=== PATIENT | male | born 1980 | race Caucasian/White ===

== ENCOUNTER 2023-02-24 09:22 | Emergency (ER) | payer OTHER, SELFPAY ==
[2023-02-24] VITALS (17 sets, daily range): BP systolic 94–119; BP diastolic 74–97; PULSE 56–118; RESP 16; TEMP 35.9; O2SAT 95–98; BMI 28.7
--- NOTE | 2023-02-24 09:52 | ED.NURSE ---
0952--started saline lock #20 in the right wrist and able to draw the labs from the site. EKG doen. patient suddenly became diaphoretic, pale, hr dropped to 45,BP 78/50, and stated I do not feel good. Informed Dr. Torres of this issue and to come see the patient. patient felt like the hands are shaking bilaterally but staff does not see visible shaking. c/o feeling dehydrated, weak, and legs are heavy.
--- NOTE | 2023-02-24 10:00 | ED.NURSE ---
Dr. Torres is talking to patient about doing a cardioversion and went over the consent with patient. patient is set up for cardioversion with Dr. Nath and Dr. Torres present in the room with scriber. All equipment is present and ready if needed.
--- NOTE | 2023-02-24 10:19 | ED.NURSE ---
see conscious sedation form and shocked 150 joules with one shock converted into a normal sinus rhythm. repeated EKG done to confirm rhythm. Dr. Torres reviewing the EKG. patietn is doing well and arousable.
--- NOTE | 2023-02-24 10:39 | W.ED.CHARTNO ---
ED Chart Note Chart Note Details Date: 02/24/23 Details: I was asked to supply airway expertise along with anesthesia. Indication was atrial fibrillation with hypotension, please see provider's note. Patient briefly is a 42-year-old gentleman, past history of at least 4 general anesthesia is. No known drug allergies, last ate approximately 3 hours ago. History of previous atrial fibrillation which I believe has been dealt with with electrical cardioversion. No loose teeth, no history of neck issues. Brief examination shows blood pressure 112/97, but he had been down to 70 systolic initially. Pulse was 118 irregularly irregular on the monitor, consistent with atrial fibrillation respiratory rate 16 temperature 96.7? and saturations on 98% on 3 L of oxygen Pupils equal round reactive to light, oropharynx normal, good neck extension, Mallampati score 2, chest is good air entry bilaterally with no wheezing crackles noted heart sounds are normal, with irregularly irregular heart rhythm. Extremities reveal no pitting edema swelling is neurologically intact. Etomidate, 20 mg, was used, this resulted in good anesthesia, Saturations never dipped below 88%, supplemental oxygen was used, chin thrust was used, briefly. Assessment: Successful anesthesia for electrical cardioversion. Plan: Patient will recovered normally, he is now currently speaking normally, maintaining saturations, and back in normal sinus rhythm.
[2023-02-24 10:42] LABS: Basophils Absolute Auto 0.03 K/uL (0.00-0.30); Basophils Percent Auto 0.5 % (0.0-3.0); Eosinophils Absolute Auto 0.12 K/uL (0.00-0.50); Eosinophils Percent Auto 1.9 % (0.0-7.0); Hematocrit 49.2 % (37.0-53.0); Hemoglobin* 16.8 gm/dL (13.5-17.5); Lymphocytes Absolute Auto 2.15 K/uL (0.90-2.90); Lymphocytes Percent Auto 34.2 % (20-44); Mean Corpuscular HGB Conc 34 gm/dL (32-36); Mean Corpuscular Hemoglobin 30 pg (26-34); Mean Corpuscular Volume 86 fL (80-100); Monocytes Percent Auto 8.9 % (0.0-11.0); Neutrophils Absolute Auto 3.42 K/uL (1.7-7.0); Neutrophils Percent Auto 54.5 % (42.0-72.0); Platelet Count* 343 K/uL (140-440); RDW Coefficient of Variation % 13.2 % (11.5-15.5); White Blood Count* 6.28 K/uL (4.50-11.00)
[2023-02-24 10:45] LABS: Slide Review Reflex No
[2023-02-24 10:55] LABS: Chloride* 110 mmol/L (96-114)
[2023-02-24 10:56] LABS: Albumin* 4.7 g/dL (3.3-5.0); Potassium* 4.2 mmol/L (3.6-5.1); Sodium* 140 mmol/L (135-149)
[2023-02-24 10:58] LABS: Creatinine* 0.8 mg/dL (0.5-1.5); Estimated Glomerular Filt Rate 113 ml/min
[2023-02-24 10:59] LABS: Alanine Aminotransferase* 24 U/L (4-50); Alkaline Phosphatase* 97 U/L (40-150); Anion Gap 10 mEq/L (7-15); Aspartate Amino Transferase* 31 U/L (12-35); Bilirubin Total* 0.9 mg/dL (0.1-1.5); Blood Urea Nitrogen* 14 mg/dL (5-24); Carbon Dioxide* 20 mmol/L (20-32); Glucose* 91 mg/dL (60-115)
[2023-02-24 11:00] LABS: Calcium* 9.3 mg/dL (8.4-10.6); Magnesium* 2.4 mg/dL (1.5-2.6)
[2023-02-24] MEDS: ETOMIDATE 2 MG/ML inj 30 MG IVP (11:04)
[2023-02-24] MEDS: 0.9 % SODIUM CHLORIDE 1000 ml 1,000 ML IV (11:04)
[2023-02-24 11:13] LABS: Troponin I* < 0.01 ng/mL (0.01-0.04)
--- NOTE | 2023-02-24 11:21 | ED.NURSE ---
patient is feeling better, back to normal. the feeling in the legs is gone. on the cell phone looking at it.
--- NOTE | 2023-02-24 11:31 | ED.GENADULT ---
HPI - General Adult General Chief complaint: Arrhythmia/Palpitations Stated complaint: Afib since last night Time Seen by Provider: 02/24/23 09:55 Source: patient Mode of arrival: ambulatory Limitations: no limitations History of Present Illness HPI narrative: 42 year male presenting today with concerns about atrial fibrillation. Patient states that he started feeling atrial fibrillation last evening around 7:30 p.m.. He states that this did occur to him 2 years ago and he was able to cardiovert with medications. He is quite concerned because he does feel short of breath and he feels like his legs are very weak. He is quite sweaty and generally does not feel well. He denies any recent illness and was feeling fine until 7:30pm last night when he felt his heart start to race. He is lightheaded. He states that he has a history of very mild hypertension that has not required any medications. He takes no daily medications.. He did have an echocardiogram done last year which was entirely normal. Related Data Home Medications Medication Instructions Recorded Confirmed No Known Home Medications 02/24/23 02/24/23 Allergies Allergy/AdvReac Type Severity Reaction Status Date / Time No Known Drug Allergies Allergy Verified 02/24/23 10:33 Review of Systems Status of ROS: Reports: 10 or more systems reviewed and unremarkable except as noted in History and below [facility] Medical History Atrial fibrillation status post cardioversion ?I48.91 - Unspecified atrial fibrillation (ICD-10) A-fib ?I48.91 - Unspecified atrial fibrillation (ICD-10) Social History Smoking Status: Never smoker Do you use any of these nicotine containing products: None How often do you have a drink containing alcohol: 2-3 times a week AUDIT-C Alcohol total score: 3 Non-prescribed substance use: denies use Exam Narrative: Exam Narrative: Patient is quite hypotensive with systolic blood pressure of 78. Well-nourished well-developed patient pale and diaphoretic. Alert and oriented. Answers questions appropriately. Thoughts are goal oriented and rational. No tangential or magical thinking noted. Patient speaks in full sentences without needing to catch their breath. HEENT: Normocephalic atraumatic. Pupils are equally round reactive to light. Extraocular muscles are intact. Conjunctivae are moist without any icterus noted. Moist mucous membranes. Posterior pharynx is normal. Neck is soft without any lymphadenopathy or thyromegaly. No masses are appreciated. Cardiovascular: Irregularly irregular. S1-S2 present without murmurs. Lungs: Clear to auscultation bilaterally no wheezes rhonchi or rales are appreciated. Patient takes deep breaths without any discomfort. Abdomen: Soft and nontender nondistended with normal bowel sounds. No guarding or rebound. No masses or organomegaly appreciated. Extremities: Bilateral lower extremities are without edema. Normal DP and PT pulses. Skin: Well perfused without any obvious rashes. Const: Vital Signs, click to edit/add: Vital Signs - 24 hr 02/24/23 09:31 02/24/23 09:31 02/24/23 09:59 Temperature 96.7 F L Pulse Rate Pulse Rate [Pulse Oximeter] 118 H Respiratory Rate 16 Blood Pressure Blood Pressure [Le ft Upper Arm] 112/97 H Pulse Oximetry 98 98 98 Oxygen Delivery Me thod Nasal Cannula Room Air 02/24/23 11:02 02/24/23 11:03 02/24/23 11:07 Temperature Pulse Rate 60 59 L 61 Pulse Rate [Pulse Oximeter] Respiratory Rate Blood Pressure 114/79 116/82 Blood Pressure [Le ft Upper Arm] Pulse Oximetry 95 96 96 Oxygen Delivery Me thod Room Air 02/24/23 11:12 Temperature Pulse Rate 57 L Pulse Rate [Pulse Oximeter] Respiratory Rate Blood Pressure 103/81 Blood Pressure [Le ft Upper Arm] Pulse Oximetry 95 Oxygen Delivery Me thod Course Course ED Course: Upon arrival, patient is placed in Trendelenburg and a IV is started. Blood pressure does come up into the 90s than low 100s with fluid bolus. We discussed cardioversion upon arrival, which I think is necessary at this time he is quite symptomatic and not tolerating atrial fibrillation- patient is in agreement with this after risk and benefits are discussed. Initial EKG does show atrial fibrillation with a pulse in the 80s to 100s. Dr. Galindo provided anesthesia and airway management. Please see his note for further details. We proceeded with a synchronized cardioversion with 150 joules x1. This was successful and patient went into normal sinus rhythm. Repeat EKG showed sinus bradycardia with a pulse of 50. After cardioversion, patient felt significantly better. Color return to his face, diaphoresis stopped and he was long longer lightheaded. He recover from anesthesia without difficulty. Blood work was unremarkable. I did consult with Dr. Figueroa, who was able to see the patient's medical records as he had cardiac workup done through [facility]. He did not recommend be sent home on any medications, did recommend cardiology follow-up. Vital Signs Vital signs: Initial Vital Signs Respiratory Effort Normal, Spontaneous 02/24/23 09:31 Respiratory Depth Normal 02/24/23 09:31 Respiratory Pattern Normal 02/24/23 09:31 Pulse Oximetry 98 02/24/23 09:31 Oxygen Delivery Method Nasal Cannula 02/24/23 09:31 Vital Signs Pulse Oximetry 98 02/24/23 09:31 Oxygen Delivery Method Nasal Cannula 02/24/23 09:31 Temperature 96.7 F L 02/24/23 09:59 Pulse Rate 57 L 02/24/23 11:12 Respiratory Rate 16 02/24/23 09:59 Blood Pressure 103/81 02/24/23 11:12 Pulse Oximetry 95 02/24/23 11:12 Oxygen Delivery Method Room Air 02/24/23 11:02 Medical Decision Making MDM Narrative Medical decision making narrative: 42-year-old male with atrial fibrillation that was quite symptomatic. Status post cardioversion with symptoms resolved. Recommend follow-up with Cardiology and return to ER if symptoms return. Medical Records Medical records reviewed: Yes I reviewed the patient's medical records Lab Data Lab results reviewed: Yes I reviewed the patient's lab results Labs: Lab Results 02/24/23 Range/Units 09:52 WBC 6.28 (4.50-11.00) K/uL RBC 5.70 (4.30-5.90) m/uL Hgb 16.8 (13.5-17.5) gm/dL Hct 49.2 (37.0-53.0) % MCV 86 (80-100) fL MCH 30 (26-34) pg MCHC 34 (32-36) gm/dL RDW Coeff of Ana 13.2 (11.5-15.5) % Plt Count 343 (140-440) K/uL Neut % (Auto) 54.5 (42.0-72.0) % Lymph % (Auto) 34.2 (20-44) % Woodson % (Auto) 8.9 (0.0-11.0) % Eos % (Auto) 1.9 (0.0-7.0) % Baso % (Auto) 0.5 (0.0-3.0) % Neut # (Auto) 3.42 (1.7-7.0) K/uL Lymph # (Auto) 2.15 (0.90-2.90) K/uL Woodson # (Auto) 0.60 (0.00-0.90) K/UL Eos # (Auto) 0.12 (0.00-0.50) K/uL Baso # (Auto) 0.03 (0.00-0.30) K/uL Abs Immat Gran (auto) 0.00 (0.00-0.30) K/uL Imm/Tot Granulo (auto) 0.0 % Sodium 140 (135-149) mmol/L Potassium 4.2 (3.6-5.1) mmol/L Chloride 110 (96-114) mmol/L Carbon Dioxide 20 (20-32) mmol/L Anion Gap 10 (7-15) mEq/L BUN 14 (5-24) mg/dL Creatinine 0.8 (0.5-1.5) mg/dL Estimated Creat Clear 124.20 Estimated GFR 113 ml/min Glucose 91 (60-115) mg/dL Calcium 9.3 (8.4-10.6) mg/dL Magnesium 2.4 (1.5-2.6) mg/dL Total Bilirubin 0.9 (0.1-1.5) mg/dL Direct Bilirubin 0.0 (0.0-0.5) mg/dL AST 31 (12-35) U/L ALT 24 (4-50) U/L Alkaline Phosphatase 97 (40-150) U/L Troponin I < 0.01 L (0.01-0.04) ng/mL Total Protein 8.0 (6.0-8.3) g/dL Albumin 4.7 (3.3-5.0) g/dL ECG Data Attestation: I personally reviewed and interpreted this ECG as follows: Critical Care Time Critical Care Time Total Critical Care Time in Minutes: 60 Discharge Plan Discharge Clinical Impression: Atrial fibrillation Patient Disposition: Home, Self-Care Condition: Stable Additional Instructions: You will need a follow-up with Cardiology. Call your cardiology team to set this up as soon as possible. Return to the ER if your symptoms return. Prescriptions: No Action No Known Home Medications Follow Up/Referrals: Provider,Not a Local [Primary Care Provider] - Stand Alone Forms: [facility] Info Instructions
== END 2023-02-24 12:21 | disposition home or self-care (01) ==
PROVIDERS: Emergency Provider Family Medicine
DX: I48.91 Unspecified atrial fibrillation (principal)
CPT/HCPCS: 36415; 80048; 80076; 83735; 84484; 85025; 92960; 93005; 94761; 99285; 99291; J7030

== ENCOUNTER 2023-04-10 14:42 | Outpatient (CLI) | payer OTHER, SELFPAY | END 2023-04-10 14:43 | disposition home or self-care (01) | LOC: NFLDREF 14:43 | PROVIDERS: Visit Provider Internal Medicine Cardiovascular Disease | DX: I48.91 Unspecified atrial fibrillation (principal) | CPT/HCPCS: 84443 ==

== ENCOUNTER 2023-04-14 14:15 | Outpatient (CLI) | payer OTHER, SELFPAY ==
[2023-04-14 15:38] VITALS: BP 140/82; PULSE 88; RESP 16
--- NOTE | 2023-04-14 16:26 | W.PM.STED ---
Stress Test Note Date Date of test: 04/14/23 Providers Primary care provider: Von Nolasco Stress test physician: Saroj Nath Stress Test Note Stress test ordered: Stress Echo Indication for test: History of atrial fibrillation Results discussion: This pleasant 42-year-old gentleman presents for the above scheduled and ordered test. Cardiac stress test medical history form is reviewed entirely. After discussion the risks benefits and side effects he would like to proceed. Pretest EKG shows normal sinus rhythm, with a ventricular rate of 77, no acute ST wave changes are notable. Exercises following Chucho protocol over 11 minute. Achieved a metabolic equivalent of 12.1 Mets with a maximum heart rate of 162. This is 107% of the target. Test is terminated because of fulfillment of protocol, he had no anginal equivalent symptoms. There is no ST wave changes suggestive ischemia on the tracing and there is no dysrhythmias. He recovered normally. Impression: Negative electrographic portion of stress echo Follow up suggested: Await echo images these will be read by Cardiology, clinical correlation will be needed. Patient left this testing facility in excellent condition.
== END 2023-04-14 15:46 | disposition home or self-care (01) ==
LOC: STRESS 14:16
PROVIDERS: PCP Family Medicine; Visit Provider Family Medicine
DX: I48.91 Unspecified atrial fibrillation (principal)
CPT/HCPCS: 93016; 93325; 93351

== ENCOUNTER 2023-05-25 17:26 | Emergency (ER) | payer OTHER, SELFPAY ==
[2023-05-25] VITALS (63 sets, daily range): BP systolic 94–137; BP diastolic 43–127; PULSE 75–160; RESP 10–21; TEMP 36; O2SAT 92–99; BMI 27.8
--- NOTE | 2023-05-25 17:44 | ED_ITS ---
HPI - General Adult General Chief complaint: Arrhythmia/Palpitations Stated complaint: weak Time Seen by Provider: 05/25/23 17:44 History of Present Illness HPI narrative: happened twice before. driving home, heart went into afib according to watch. sweaty, feeling wobbly. saw dr. linder. last time had cardioversion. has not taken paroxetine for a few days. 42-year-old man presenting to the emergency department with concern of weakness. Does have a history with atrial fibrillation. Notes a history of cardioversion. On review of records it looks like last cardioversion was 02/24/23. On review of records I see that he did have an stress echocardiogram back in April 2023 and looks to have been quite good. EF of 60-65%. Good global function and no abnormal wall motion. History of atrial fibrillation twice before. He says though that this is typically occurred with periods of stress. Does endorse more emotional stress lately but physical stress was not the trigger this time. He had just been driving back from a ?car appointment?. Is feeling weak and short of breath. Some lightheadedness. This did resolve in recalling with his zoology teacher said decided to come in sooner than later anticipating chemical cardioversion. Has not taken paroxetine last couple or 3 days. Did take that along with a few doses of hydroxyzine which she also has available for his anxiety. Has not been experiencing chest pain. Otherwise physically generally well without cough or cold symptoms. No fever. Exercise tolerance. Foot I understand to be related to emotional stress, has not been taking care of himself quite as well as he would like to the last few days. Has had a few more drinks of caffeine. Denies any other substance/alcohol use. Related Data Home Medications Medication Instructions Recorded Confirmed hydroxyzine HCl 25 mg tablet 30 mg PO QHS 04/10/23 05/25/23 pantoprazole 20 mg tablet,delayed 30 mg PO QDAY 04/10/23 04/10/23 release (Protonix) paroxetine HCl 05/25/23 Allergies Allergy/AdvReac Type Severity Reaction Status Date / Time tramadol AdvReac Severe itching Uncoded 04/10/23 13:53 Review of Systems Status of ROS: Reports: 6 or more systems reviewed and unremarkable except as noted in History and below [facility] Medical History Atrial fibrillation status post cardioversion ?I48.91 - Unspecified atrial fibrillation (ICD-10) A-fib ?I48.91 - Unspecified atrial fibrillation (ICD-10) Social History Smoking Status: Never smoker Do you use any of these nicotine containing products: None How often do you have a drink containing alcohol: 2-3 times a week AUDIT-C Alcohol total score: 3 Non-prescribed substance use: denies use Exam Narrative: Exam Narrative: Pleasant. Seems a little flushed. Easily conversant. Head is atraumatic. Is breathing easily. Mouth sounds sticky. Heart is in a tachycardic rhythm with occasional ectopy. Otherwise distant. Abdomen is soft. Lungs are clear. Extremities are without edema. Well-perfused. Moving all extremities without difficulty. Does seem just a little bit tremulous though. Const: Vital Signs, click to edit/add: Vital Signs - 24 hr 05/25/23 17:30 05/25/23 17:48 05/25/23 18:00 Temperature 96.8 F L Pulse Rate 92 88 Pulse Rate [Pulse Oximeter] 160 H Respiratory Rate 20 Blood Pressure Blood Pressure [Ri ght Upper Arm] 109/88 Pulse Oximetry 98 92 95 Oxygen Delivery Me thod Room Air Oxygen Flow Rate 05/25/23 18:01 05/25/23 18:07 05/25/23 18:08 Temperature Pulse Rate 86 87 94 Pulse Rate [Pulse Oximeter] Respiratory Rate Blood Pressure 118/94 H 113/98 H Blood Pressure [Ri ght Upper Arm] Pulse Oximetry 94 97 94 Oxygen Delivery Me thod Oxygen Flow Rate 05/25/23 18:13 05/25/23 18:15 05/25/23 18:16 Temperature Pulse Rate 104 H 99 89 Pulse Rate [Pulse Oximeter] Respiratory Rate Blood Pressure 118/81 121/85 Blood Pressure [Ri ght Upper Arm] Pulse Oximetry 94 93 95 Oxygen Delivery Me thod Oxygen Flow Rate 05/25/23 18:17 05/25/23 18:21 05/25/23 18:22 Temperature Pulse Rate 86 87 88 Pulse Rate [Pulse Oximeter] Respiratory Rate Blood Pressure 121/82 110/82 Blood Pressure [Ri ght Upper Arm] Pulse Oximetry 95 96 94 Oxygen Delivery Me thod Oxygen Flow Rate 05/25/23 18:30 05/25/23 18:31 05/25/23 18:41 Temperature Pulse Rate 78 84 80 Pulse Rate [Pulse Oximeter] Respiratory Rate Blood Pressure 115/89 115/81 Blood Pressure [Ri ght Upper Arm] Pulse Oximetry 95 96 96 Oxygen Delivery Me thod Oxygen Flow Rate 05/25/23 18:45 05/25/23 18:51 05/25/23 18:52 Temperature Pulse Rate 80 85 94 Pulse Rate [Pulse Oximeter] Respiratory Rate Blood Pressure 122/95 H Blood Pressure [Ri ght Upper Arm] Pulse Oximetry 95 95 96 Oxygen Delivery Me thod Oxygen Flow Rate 05/25/23 19:00 05/25/23 19:01 05/25/23 19:02 Temperature Pulse Rate 91 93 95 Pulse Rate [Pulse Oximeter] Respiratory Rate Blood Pressure 114/89 Blood Pressure [Ri ght Upper Arm] Pulse Oximetry 95 96 96 Oxygen Delivery Me thod Oxygen Flow Rate 05/25/23 19:08 05/25/23 19:15 05/25/23 19:30 Temperature Pulse Rate 92 93 96 Pulse Rate [Pulse Oximeter] Respiratory Rate Blood Pressure 124/88 Blood Pressure [Ri ght Upper Arm] Pulse Oximetry 97 97 98 Oxygen Delivery Me thod Oxygen Flow Rate 05/25/23 19:31 05/25/23 19:32 05/25/23 19:45 Temperature Pulse Rate 99 93 Pulse Rate [Pulse Oximeter] Respiratory Rate Blood Pressure 124/88 Blood Pressure [Ri ght Upper Arm] Pulse Oximetry 98 98 98 Oxygen Delivery Me thod Oxygen Flow Rate 05/25/23 20:00 05/25/23 20:01 05/25/23 20:15 Temperature Pulse Rate Pulse Rate [Pulse Oximeter] Respiratory Rate Blood Pressure Blood Pressure [Ri ght Upper Arm] Pulse Oximetry 97 97 97 Oxygen Delivery Me thod Oxygen Flow Rate 05/25/23 20:23 05/25/23 20:30 05/25/23 20:31 Temperature Pulse Rate Pulse Rate [Pulse Oximeter] Respiratory Rate Blood Pressure Blood Pressure [Ri ght Upper Arm] Pulse Oximetry 97 97 95 Oxygen Delivery Me thod Oxygen Flow Rate 05/25/23 20:45 05/25/23 21:19 05/25/23 21:30 Temperature Pulse Rate 88 Pulse Rate [Pulse Oximeter] Respiratory Rate Blood Pressure Blood Pressure [Ri ght Upper Arm] Pulse Oximetry 96 97 94 Oxygen Delivery Me thod Oxygen Flow Rate 05/25/23 21:31 05/25/23 21:32 05/25/23 21:45 Temperature Pulse Rate 89 88 98 Pulse Rate [Pulse Oximeter] Respiratory Rate Blood Pressure 135/99 H Blood Pressure [Ri ght Upper Arm] Pulse Oximetry 96 96 95 Oxygen Delivery Me thod Oxygen Flow Rate 05/25/23 22:00 05/25/23 22:01 05/25/23 22:02 Temperature Pulse Rate 104 H 77 100 Pulse Rate [Pulse Oximeter] Respiratory Rate Blood Pressure 134/78 Blood Pressure [Ri ght Upper Arm] Pulse Oximetry 94 96 95 Oxygen Delivery Me thod Oxygen Flow Rate 05/25/23 22:15 05/25/23 22:30 05/25/23 22:31 Temperature Pulse Rate 85 111 H 105 H Pulse Rate [Pulse Oximeter] Respiratory Rate Blood Pressure 132/81 Blood Pressure [Ri ght Upper Arm] Pulse Oximetry 96 95 96 Oxygen Delivery Me thod Oxygen Flow Rate 05/25/23 22:32 05/25/23 22:45 05/25/23 23:00 Temperature Pulse Rate 92 87 90 Pulse Rate [Pulse Oximeter] Respiratory Rate Blood Pressure Blood Pressure [Ri ght Upper Arm] Pulse Oximetry 95 96 96 Oxygen Delivery Me thod Oxygen Flow Rate 05/25/23 23:01 05/25/23 23:12 Temperature Pulse Rate 75 Pulse Rate [Pulse Oximeter] Respiratory Rate Blood Pressure 120/88 Blood Pressure [Ri ght Upper Arm] Pulse Oximetry 94 98 Oxygen Delivery Me thod Nasal Cannula Oxygen Flow Rate 4 Documenting provider has reviewed patient's vital signs: yes Course Vital Signs Vital signs: Initial Vital Signs Temperature 96.8 F L 05/25/23 17:30 Temperature Source Temporal Artery Scan 05/25/23 17:30 Pulse Rate 160 H 05/25/23 17:30 Respiratory Rate 20 05/25/23 17:30 Blood Pressure 109/88 05/25/23 17:30 Blood Pressure Mean 95 05/25/23 17:30 Blood Pressure Position Supine 05/25/23 17:30 Pulse Oximetry 98 05/25/23 17:30 Oxygen Delivery Method Room Air 05/25/23 17:30 Vital Signs Temperature 96.8 F L 05/25/23 17:30 Pulse Rate 160 H 05/25/23 17:30 Respiratory Rate 20 05/25/23 17:30 Blood Pressure 109/88 05/25/23 17:30 Pulse Oximetry 98 05/25/23 17:30 Oxygen Delivery Method Room Air 05/25/23 17:30 Temperature 96.8 F L 05/25/23 17:30 Pulse Rate 75 05/25/23 23:01 Respiratory Rate 20 05/25/23 17:30 Blood Pressure 120/88 05/25/23 23:01 Pulse Oximetry 98 05/25/23 23:12 Oxygen Delivery Method Nasal Cannula 05/25/23 23:12 Oxygen Flow Rate 4 05/25/23 23:12 Medications Administered Medications: Discontinued Medications Generic Name Dose Route Start Last Admin Trade Name Freq PRN Reason Stop Dose Admin Diltiazem HCl 20 mg 05/25/23 17:55 05/25/23 18:07 Diltiazem 5 Mg/Ml Inj IVP 05/25/23 17:56 20 mg ONCE ONE Administration Flecainide Acetate 300 mg 05/25/23 20:48 05/25/23 21:21 Flecainide Acetate 50 Mg Tablet PO 05/25/23 20:49 300 mg ONCE ONE Administration Sodium Chloride 1,000 mls @ 1,000 mls/hr 05/25/23 17:55 05/25/23 19:08 0.9 % Sodium Chloride 1000 Ml IV 05/25/23 18:54 Infused .Q1H ONE Infusion Medical Decision Making MDM Narrative Medical decision making narrative: EKG on arrival does show AFib with RVR. This is not the 1st time this has happened. Has just this evening re-entered atrial fibrillation by all account. Would like to cardiovert quickly but without support at this time. Will place IV though and initiate fluid resuscitation. Given 20 mg of diltiazem. Check electrolytes. Heart rate slowed as much as 70 but remained in atrial fibrillation. Back up to near 100 and then 120 +again. Labs are reassuring. Normal potassium and magnesium. Did discuss this case with cardiology since he has seen [facility]. There been a tentative plan to trial ?pill in the pocket reference to flecainide. Checked QTc as acceptable and so less risk of left subsequent arrhythmia. Was given 300 mg of flecainide. During 90 minutes of observation did not result in conversion to normal sinus. Assisted by nursing and anesthesia, prepared for electrical cardioversion. Assisted by Anesthesia was sedated with a propofol and synced to 200 joules. Shocked twice without success. Bolused another L of fluids and adjusted pad placement and shocked again at 200 joules. Did return to normal sinus. Recommendations by Cardiology were not to proceed with antiarrhythmic or rate control with a desire to proceed relatively quickly to cardiac ablation. Alert and supporting own airway. Reassuring vitals. Ambulatory. Lab Data Lab results reviewed: Yes I reviewed the patient's lab results Labs: Lab Results 05/25/23 05/25/23 Range/Units 17:43 17:49 WBC 10.30 (4.50-11.00) K/uL RBC 5.26 (4.30-5.90) m/uL Hgb 15.6 (13.5-17.5) gm/dL Hct 45.6 (37.0-53.0) % MCV 87 (80-100) fL MCH 30 (26-34) pg MCHC 34 (32-36) gm/dL RDW Coeff of Ana 13.1 (11.5-15.5) % Plt Count 343 (140-440) K/uL Neut % (Auto) 55.1 (42.0-72.0) % Lymph % (Auto) 32.9 (20-44) % Nuckolls % (Auto) 8.9 (0.0-11.0) % Eos % (Auto) 2.6 (0.0-7.0) % Baso % (Auto) 0.4 (0.0-3.0) % Neut # (Auto) 5.67 (1.7-7.0) K/uL Lymph # (Auto) 3.39 H (0.90-2.90) K/uL Nuckolls # (Auto) 0.90 (0.00-0.90) K/UL Eos # (Auto) 0.27 (0.00-0.50) K/uL Baso # (Auto) 0.04 (0.00-0.30) K/uL Abs Immat Gran (auto) 0.01 (0.00-0.30) K/uL Imm/Tot Granulo (auto) 0.1 % Sodium 143 (135-149) mmol/L Potassium 4.1 (3.6-5.1) mmol/L Chloride 107 (96-114) mmol/L Carbon Dioxide 25 (20-32) mmol/L Anion Gap 11 (7-15) mEq/L BUN 16 (5-24) mg/dL Creatinine 0.9 (0.5-1.5) mg/dL Estimated Creat Clear 117.36 Estimated GFR 109 ml/min Glucose 93 (60-115) mg/dL Calcium 9.5 (8.4-10.6) mg/dL Magnesium 2.2 (1.5-2.6) mg/dL Troponin I < 0.01 L (0.01-0.04) ng/mL C-Reactive Protein 0.6 (0.5-1.0) mg/dL POC Troponin I 0.00 L (0.01-0.04) ng/ml ECG Data Attestation: I personally reviewed and interpreted this ECG as follows: (EKG 1. Atrial fibrillation with RVR. Rate of 55 EKG 2 after what appeared to be successful cardioversion. Normal sinus rhythm with a rate of 74) Critical Care Time Critical Care Time Critical Care Time: Yes Attestation: The patient required my highest level preparedness to intervene emergently and I personally spent this critical care time directly and personally managing the patient. This critical care time included: Obtaining a history; Examining the patient; Pulse oximetry; Ordering and reviewing of studies; Arranging urgent treatment with development of a management plan; Evaluation of patients response to treatment; Frequent reassessment discussions with other providers. This critical care time was performed to assess and manage the high probability of imminent life-threatening deterioration that could result in multiorgan failure. It was exclusive of separate billable procedures and treating other patients and teaching time. Total Critical Care Time in Minutes: 75 Discharge Plan Discharge Clinical Impression: Atrial fibrillation with RVR Patient Disposition: Home w/ Parent or Adult Condition: Improved Additional Instructions: You were given normal saline IV fluids and 20 mg of diltiazem. We did try oral flecainide with you tonight but that did not convert you as hoped. You were ultimately converted back to normal sinus rhythm with electrical cardioversion at 200 joules. I would anticipate a call from your zoology teacher/cardiology clinic tomorrow to arrange next steps. I believe the plan is to get you in for ablation soon. If you do not hear from them tomorrow I would go ahead and give them a call. Otherwise return for recurrence of symptoms as today, stay well-hydrated. Avoid alcohol and maybe stimulants. I do not have any restrictions on physical activity for you although I realize that prior episodes of AFib seem to have been concurrent with physical exertion. Prescriptions: No Action hydroxyzine HCl 25 mg tablet 30 mg PO QHS pantoprazole [Protonix] 20 mg tablet,delayed release (DR/EC) 30 mg PO QDAY paroxetine HCl Follow Up/Referrals: Von Nolasco MD [Primary Care Provider] - Stand Alone Forms: [employer] Info Instructions Procedures Procedural Sedation Assistants, if any: PRASANNA Douglas Additional Procedures Procedure name: Electrical cardioversion Pre procedure diagnosis: Atrial fibrillation with rapid ventricular response, symptomatic Post procedure diagnosis: Atrial fibrillation with rapid ventricular response, symptomatic Written consent by: patient Site marking: not applicable Verification/time out: correct patient and correct procedure Estimated blood loss (if any): none Conclusion: patient tolerated procedure Additional comments: Following adequate sedation with propofol by Anesthesia support, Synced cardioversion at 200 joules x2 did not result in return to normal sinus rhythm. Pause and reassessment was done. Pads were replaced and location modified. Bolused for another 800 or so mL of normal saline. Sedated again with smaller mg of propofol and cardioverted again with 200 joules successfully with return to normal sinus. Did require brief jaw thrust assist for mild desaturations
[2023-05-25] MEDS: 0.9 % SODIUM CHLORIDE 1000 ml 1,000 ML IV (18:06)
[2023-05-25] MEDS: dilTIAZem 5 MG/ML inj 20 MG IVP (18:07)
[2023-05-25 18:10] LABS: Basophils Absolute Auto 0.04 K/uL (0.00-0.30); Basophils Percent Auto 0.4 % (0.0-3.0); Eosinophils Absolute Auto 0.27 K/uL (0.00-0.50); Eosinophils Percent Auto 2.6 % (0.0-7.0); Hematocrit 45.6 % (37.0-53.0); Hemoglobin* 15.6 gm/dL (13.5-17.5); Immature Granulocytes Abs Auto 0.01 K/uL (0.00-0.30); Immature Granulocytes Pct Auto 0.1 %; Lymphocytes Absolute Auto 3.39 K/uL (0.90-2.90); Lymphocytes Percent Auto 32.9 % (20-44); Mean Corpuscular HGB Conc 34 gm/dL (32-36); Mean Corpuscular Hemoglobin 30 pg (26-34); Mean Corpuscular Volume 87 fL (80-100); Monocytes Percent Auto 8.9 % (0.0-11.0); Neutrophils Absolute Auto 5.67 K/uL (1.7-7.0); Neutrophils Percent Auto 55.1 % (42.0-72.0); Platelet Count* 343 K/uL (140-440); RDW Coefficient of Variation % 13.1 % (11.5-15.5); Red Blood Count 5.26 m/uL (4.30-5.90)
[2023-05-25 18:12] LABS: Slide Review Reflex No
--- OUTSIDE RECORDS SUMMARY | 2023-05-25 18:12 | XMS_ITS | Clinical Summary ---
Author Name Unknown Organization [facility] Address [address] [address] Phone Care Team Providers Care Fatback Trimmer Name Role Phone Elsewhere, Pcp Primary Care Provider Unavailabl e Allergies No known active allergies Medications No known medications Active Problems No known active problems Immunizations Name Administration Dates Next Due Tdap (7 years and older) 10/14/2011 Social History Tobacco Use Types Packs/Day Years Used Date Smoking Tobacco: Never Sex and Gender Information Value Date Recorded Sex Assigned at Not on file Gender Identity Not on file Sexual Orientation Not on file Obstetrics History Last Filed Vital Signs Vital Sign Reading Time Taken Comments Blood Pressure 116/70 10/14/2011 4:41 PM CDT Pulse 60 10/14/2011 4:41 PM CDT Temperature 36.2 ??C (97.2 ??F) 10/14/2011 4:41 PM CD T Respiratory Rate 18 10/14/2011 4:41 PM CDT Oxygen Saturation 98% 10/14/2011 4:41 PM CDT Inhaled Oxygen Concentration - - Weight 77.1 kg (170 lb) 10/14/2011 4:41 PM CDT Height - - Body Mass Index - - Plan of Treatment Health Maintenance Due Date Last Done Comments Hepatitis B Vaccine (Standin g Order) (1 of 3 - 3-dose series) 1980 COVID-19 Vaccine (#1) 1980 TETANUS (Standing Order) 10/13/2021 10/14/2011 Influenza Vaccine Seasonal (Standing Order) (#1) 2023 PERTUSSIS (Standing Order) Completed 10/14/2011 HPV Vaccine (Standing Order) Aged Out No longer eligible based on patient's age to complete this topic Pneumococcal/PCV20 Vaccine: Pediatrics (2-5 yrs) and At-Risk Patients (6-64 yrs) (Standing Order) Aged Out No longer eligible b ased on patient's age to complete this topic Care Teams Fatback Trimmer Relationship Specialty Start Date End Date Elsewhere, Pcp PCP - General 10/14/11
--- OUTSIDE RECORDS SUMMARY | 2023-05-25 18:12 | XMS_ITS | Clinical Summary ---
Author Name Unknown Organization [employer] [facility] [employer] [facility] Address [place], [place] [address] Care Team Providers Care Assembler Unit Name Role Phone Von Nolasco MD Primary Care Provider [phone] Allergies Active Allergy Reactions Criticality Noted Date Comments Tramadol Itching Low 06/11/2016 Medications Medication Sig Dispensed Refills Start Date End Date Status PARoxetine (PAXIL) 30 mg tablet Take 30 mg by mouth once daily. 0 Active Active Problems Problem Noted Date Diagnosed Date Closed fracture of right ankle with routine heal ing 2016 Encounters Date Type Department Care Team Description 04/17/2023 Telephone [facility] [address] [address] [place] [address] Jens Levine MD Results (stress echo) 04/14/2023 3:00 PM HEADLINER INSTALLER Ancillary Procedure [facility] [address] [place] [address] 04/10/2023 2:00 PM HEADLINER INSTALLER Office Visit [facility] [address] [place] [address] Jens Levine MD from Last 3 Months Family History Medical History Relation Name Comments Good Health Father Good Health Mother Relation Name Status Comments Father Alive Mother Alive Social History Tobacco Use Types Packs/Day Years Used Date Smoking Tobacco: Never Smokeless Tobacco: Never Tobacco Cessation:Counseling Given: Yes Alcohol Use Standard Drinks/Week Comments Not Currently 0 (1 standard drink = 0.6 oz pur e alcohol) Social Connections Answer Date Recorded Frequency of Communication with Friends and Fami ly Not on file 05/06/2021 Financial Resource Strain Answer Date R ecorded Difficulty of Paying Living Expenses Not on file 05/06/2021 Difficulty of Paying Living Expenses Not on file 05/06/2021 Sex and Gender Information Value Date Recorded Sex Assigned at Not on file Gender Identity Not on file Sexual Orientation Not on file Obstetrics History Last Filed Vital Signs Vital Sign Reading Time Taken Comments Blood Pressure 160/100 05/06/2021 7:53 AM HEADLINER INSTALLER Pulse 99 05/06/2021 7:53 AM HEADLINER INSTALLER Temperature 36.8 ??C (98.2 ??F) 12/08/2016 7:24 AM CD T Respiratory Rate 16 12/23/2016 4:08 PM CDT Oxygen Saturation 95% 05/06/2021 7:53 AM HEADLINER INSTALLER Inhaled Oxygen Concentration - - Weight 99.2 kg (218 lb 12.8 oz) 05/06/2021 7:53 AM HEADLINER INSTALLER Height 182.9 cm (6') 05/06/2021 7:53 AM HEADLINER INSTALLER Body Mass Index 29.67 05/06/2021 7:53 AM HEADLINER INSTALLER Plan of Treatment Health Maintenance Due Date Last Done Comments COVID-19 vaccine series (#1) 1980 Tdap 1991 Depression screening for age 12+ 1992 HIV for age 15-65 1995 Hepatitis C screening for ag e 18-79 1998 Tetanus booster 2000 Lipids for age 35-44 2015 BMI (ht and wt on same day) for age 18+ 05/06/2022 05/06/2021, 11/19/2016 Influenza for age 9-49 01/02/2023 Pneumococcal series for age 6-64 Aged Out No longer eligible b ased on patient's age to complete this topic Medical Devices Implanted Type Area Escalator Constructor Device Identifier Shelf Expiration Date Model / Serial / Lot [id number] - [id number] Implanted:Qty: 1 on 06/12/2016 by Anatoly Villeda MD at [facility] Right: Ankle [employer] [id number] / / N/A Description:3.5mm Non Lockin g Screws, T10 [id number] - [id number] Implanted:Qty: 1 on 06/12/2016 by Anatoly Villeda MD at [facility] Right: Ankle [employer] [id number] / / N/A Description:3.5mm Non Lockin g Screws, T10 [id number] - [id number] Implanted:Qty: 2 on 06/12/2016 by Anatoly Villeda MD at [facility] Right: Ankle [employer] [id number] / / N/A Description:3.5 Non Locking Screws, T10 [id number] - [id number] Implanted:Qty: 1 on 06/12/2016 by Anatoly Villeda MD at [facility] Right: Ankle [employer] [id number] / / N/A Description:Fibula Straight Plate, Non Sterile [id number] - [id number] Implanted:Qty: 1 on 06/12/2016 by Anatoly Villeda MD at [facility] Right: Ankle [employer] [id number] / / N/A Description:3.5mm Non Lockin g Screws, T10 [id number] - [id number] Implanted:Qty: 1 on 06/12/2016 by Anatoly Villeda MD at [facility] Right: Ankle [employer] [id number] / / N/A Description:3.5mm Non Lockin g Screws, T10 [id number] - [id number] Implanted:Qty: 2 on 06/12/2016 by Anatoly Villeda MD at [facility] Right: Ankle [employer] [id number] / / N/A Description:3.5mm Non Lockin g Screws, T10 Explanted Type Area Escalator Constructor Device Identifier Shelf Expiration Date Model / Serial / Lot [id number] - [id number] Implanted:Qty: 2 on 06/12/2016 by Anatoly Villeda MD at [facility] Explanted:Qty: 2 on 12/08/2016 at [facility] Right: Ankle [employer] [id number] / / N/A Procedures Procedure Name Priority Date/Time Associated Diagnosis Comments ECHO STRESS EXERCISE WO CONTRAST W COLOR Routine 04/14/2023 3:37 PM HEADLINER INSTALLER A-fib (HC) from Last 3 Months Results * ECHO STRESS EXERCISE WO CONTRAST W COLOR (04/14/2023 3:37 PM HEADLINER INSTALLER) LVEDD 4.7 cm EJECTION FRACTION 55 - 60% Anatomical Region Laterality Modality Ultrasound 04/14/2023 3:10 PM HEADLINER INSTALLER Narrative 04/14/2023 4:46 PM HEADLINER INSTALLER STRESS ECHOCARDIOGRAM WENDY FITCH ? Accession#: ?? [id number] : ?1980 42 years Study Date: ?? 04/14/2023 3:10:52 PM Gender: M ?BP: ? 144/100 mmHg Height: 183.00 cm ?BSA: ?2.17 m? ? ? Weight: 95.00 kg ? Tech: ? [facility] ? Referring MD: JENS LEVINE Site: ? [facility] Reading Location: MOBILE OP Patient Location: Outpatient. Procedure: Stress Echo and Color Doppler. Chucho stress echo. Indication for study: atrial fibrillation Cardiac Rhythm: Regular.Study quality: Fair. Final Impressions: 1. Excellent exercise duration and workload. 2. Maximum stress test with 90.9% of age predicted maximum heart rate achieved. 3. During stress exam the patient developed shortness of breath and leg pain/fatigue. 4. See separate report for EKG interpretation. 5. Post stress, normal left ventricular size, normal global systolic function with an estimated EF of 60 to 65%. 6. Negative stress echo for ischemia. Stress Data: ? HR ?Systolic Diastolic Time Duration Minutes Seconds Baseline 73 bpm ?144 ?100 mmHg ? 11 :0 ?Peak ? 161 bpm ?? 164 ?80 mmHg Max Pred HR ?177 % of Max ? 91% Double Product [id number] Echo Findings:This is a negative stress echo test for ischemia. Post stress, normal left ventricular size, normal global systolic function with an estimated EF of 60 to 65%. LV regional wall motion abnormalities are not present post exercise. EKG:See separate report for EKG interpretation. Exam Protocol:The patient presents with no significant symptoms at baseline. The patient exercised 11 min 0 sec to stage IV according to the Chucho stress echo protocol. Test terminated due to shortness of breath and fatigue. 13.5 METS were achieved. The patient achieved a heart rate of 161 bpm which is 90.9% of maximum predicted heart rate. Maximum systolic blood pressure was 164 [place] [id number]. Maximum stress test with 90.9% of age predicted maximum heart rate achieved. The blood pressure response was normal. Exercise duration and workload were excellent. The patient developed shortness of breath and leg pain/fatigue during the stress exam. Symptoms resolved with rest. Low (less than 1% annual mortality rate) non invasive risk stratification. Chamber Sizes and Function Normal left ventricular size, normal global systolic function with an estimated EF of 55 - 60%. LV regional wall motion abnormalities are not present. Valves, RV Pressures and Diastolic Function The aortic valve is normal in structure and trileaflet, no stenosis and no regurgitation. The mitral valve is normal in structure, trace mitral regurgitation. MEASUREMENTS AND CALCULATIONS 2-D Measurements and LV Function: LVID (d) ?4.7 cm LV FS% (2D) ?? 42 % LVID (s) ?2.7 cm LVOT diameter 2.3 cm IVS (d) ? 1.1 cm HR ?73 bpm LVPW (d) ?1.1 cm RV Max 4C (d) 3.0 cm Ao Sinus ?3.[address] junct 2.6 cm Asc Ao ?3.1 cm LA ?3.9 cm . This study was interpreted by an [facility] accredited facility. CC: HIM (med records) [facility]. ??Final ?? Procedure Note Kalpesh Arthur MD - 04/14/2023 STRESS ECHOCARDIOGRAM WENDY FITCH : 1980 42 years Study Date: 04/14/2023 3:10:52 PM Gender: M BP: 144/100 mmHg Height: 183.00 cm BSA: 2.17 m? ? ? Weight: 95.00 kg Tech: [facility] Referring MD: JENS LEVINE Site: [facility] Reading Location: MOBILE OP Patient Location: Outpatient. Procedure: Stress Echo and Color Doppler. Chucho stress echo. Indication for study: atrial fibrillation Cardiac Rhythm: Regular.Study quality: Fair. Final Impressions: 1. Excellent exercise duration and workload. 2. Maximum stress test with 90.9% of age predicted maximum heart rateachieved. 3. During stress exam the patient developed shortness of breath and legpain/fatigue. 4. See separate report for EKG interpretation. 5. Post stress, normal left ventricular size, normal global systolicfunction with an estimated EF of 60 to 65%. 6. Negative stress echo for ischemia. Stress Data: HR Systolic Diastolic Time Duration Minutes Seconds Baseline 73 bpm 144 100 mmHg 11 :0 Peak 161 bpm 164 80 mmHg Max Pred HR 177 % of Max 91% Double Product [id number] Echo Findings:This is a negative stress echo test for ischemia. Poststress, normal left ventricular size, normal global systolic function withan estimated EF of 60 to 65%. LV regional wall motion abnormalities arenot present post exercise. EKG:See separate report for EKG interpretation. Exam Protocol:The patient presents with no significant symptoms atbaseline. The patient exercised 11 min 0 sec to stage IV according to theBruce stress echo protocol. Test terminated due to shortness of breath andfatigue. 13.5 METS were achieved. The patient achieved a heart rate of 161bpm which is 90.9% of maximum predicted heart rate. Maximum systolic bloodpressure was 164 [place] [id number]. Maximumstress test with 90.9% of age predicted maximum heart rate achieved. Theblood pressure response was normal. Exercise duration and workload wereexcellent. The patient developed shortness of breath and leg pain/fatigueduring the stress exam. Symptoms resolved with rest. Low (less than 1%annual mortality rate) non invasive risk stratification. Chamber Sizes and Function Normal left ventricular size, normal global systolic function with anestimated EF of 55 - 60%. LV regional wall motion abnormalities are notpresent. Valves, RV Pressures and Diastolic Function The aortic valve is normal in structure and trileaflet, no stenosis and noregurgitation. The mitral valve is normal in structure, trace mitralregurgitation. MEASUREMENTS AND CALCULATIONS 2-D Measurements and LV Function: LVID (d) 4.7 cm LV FS% (2D) 42 % LVID (s) 2.7 cm LVOT diameter 2.3 cm IVS (d) 1.1 cm HR 73 bpm LVPW (d) 1.1 cm RV Max 4C (d) 3.0 cm Ao Sinus 3.[address] junct 2.6 cm Asc Ao 3.1 cm LA 3.9 cm . This study was interpreted by an [facility] accredited facility. CC: [facility] ([facility]. Final Jens Levine MD ECHO ORD from Last 3 Months Advance Directives Latest Code Status on File Code Status Date Activated Date Inactivated Comments Full Code 12/08/2016 7:40 AM 12/08/2016 3:02 PM Code Status History Code Status Date Activated Date Inactivated Comments Full Code 06/12/2016 12:51 PM 06/14/2016 2:55 PM Full Code 06/12/2016 6:32 AM 06/12/2016 12:51 PM Care Teams Assembler Unit Relationship Specialty Start Date End Date Von Nolasco MD [address] [place] [address] PCP - General Family Practice 05/06/21
[2023-05-25 18:50] LABS: Blood Urea Nitrogen* 16 mg/dL (5-24); C Reactive Protein* 0.6 mg/dL (0.5-1.0); Calcium* 9.5 mg/dL (8.4-10.6); Carbon Dioxide* 25 mmol/L (20-32); Chloride* 107 mmol/L (96-114); Creatinine* 0.9 mg/dL (0.5-1.5); Est. Creatinine Clearance* 117.36; Estimated Glomerular Filt Rate 109 ml/min; Glucose* 93 mg/dL (60-115); Magnesium* 2.2 mg/dL (1.5-2.6); Potassium* 4.1 mmol/L (3.6-5.1); Sodium* 143 mmol/L (135-149)
[2023-05-25 18:54] LABS: Anion Gap 11 mEq/L (7-15)
[2023-05-25 18:55] LABS: Troponin I* < 0.01 ng/mL (0.01-0.04)
[2023-05-25] MEDS: FLECAINIDE ACETATE 50 MG TABLET 300 MG PO (21:21)
[2023-05-26] VITALS: PULSE 74; RESP 12; O2SAT 96
[2023-05-26 00:01] VITALS: BP 110/72; PULSE 74; RESP 15; O2SAT 94
--- NOTE | 2023-05-26 00:04 | P.ANES_ITS ---
Anesthesia Charges Start Date/Time Anesthesia Start Date: 05/25/23 Anesthesia Start Time: 23:25 Stop Date/Time Anesthesia Stop Date: 05/25/23 Anesthesia Stop Time: 23:55 Summary Emergency: W[employer] T[employer]ATMENT [employer] ME[employer]IC
[2023-05-26 00:08] VITALS: BP 124/86; PULSE 74; RESP 18; O2SAT 95
[2023-05-26 00:11] VITALS: BP 117/80; PULSE 74; RESP 16; O2SAT 95
[2023-05-26 00:15] VITALS: PULSE 71; RESP 17; O2SAT 97
[2023-05-26 00:16] VITALS: BP 127/79; PULSE 72; RESP 20; O2SAT 96
[2023-05-26] MEDS: 0.9 % SODIUM CHLORIDE 1000 ml 1,000 ML IV (00:50)
--- NOTE | 2023-05-26 00:50 | ED.NURSE ---
electrical cardioversion with MD Ace and PRASANNA in room. 3 attempts @ 200j for successful conversion. pt awake and talking, up in room walking, denies pain, no n/v. denies SOB. pt ride home from spouse.
== END 2023-05-26 00:30 | disposition home or self-care (01) ==
PROVIDERS: Emergency Provider Family Medicine; PCP Family Medicine
DX: I48.91 Unspecified atrial fibrillation (principal)
CPT/HCPCS: 00410; 36415; 80048; 83735; 84484; 85025; 86140; 92960; 93005; 99140; 99284; 99291; 99292; A9270; J2704; J7030